=== PATIENT | female | born 2005 | race Caucasian/White ===

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

== ENCOUNTER 2024-09-25 13:23 | Emergency (ER) | payer BC, SELFPAY ==
[2024-09-25 13:35] VITALS: BP 141/98; PULSE 88; RESP 18; TEMP 36.7; O2SAT 99; BMI 24.7
[2024-09-25 13:56] VITALS: BP 134/79; PULSE 97; RESP 16
--- NOTE | 2024-09-25 14:16 | W.ED.HEATRA ---
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 Did not lose consciousness and has not had any seizure-like activity, vomiting, or other focal neurological deficits. Bleeding controlled with direct pressure. Tetanus not up-to-date. Vital stable at this time. Not on blood thinners and no pertinent past medical history to report. She is noting a minor headache. MD Complaint: head injury (Scalp laceration) Onset (ago): minute(s) Place: home Loss of Consciousness: no Location of injury: parietal Other Injuries: none Associated symptoms: Deny nausea or vomiting Related Data Previous Rx's Medication Instructions Recorded cetirizine 10 mg tablet 10 mg PO DAILY 30 days #30 tabs 06/22/22 fluticasone propionate 50 1 spray intranasal BID 7 days 06/22/22 mcg/actuation nasal #15.8 mL spray,suspension norethindrone acetate 1.5 1 tab PO DAILY 21 days #21 tabs 09/15/22 mg-ethinyl estradiol 30 mcg tablet (Junel) Allergies Allergy/AdvReac Type Severity Reaction Status Date / Time No Known Allergies Allergy Verified 09/25/24 13:38 Review of Systems General: Reports: 10 or more systems reviewed and unremarkable except in HPI and below Const: Denies: fever(s) or chills Card: Denies: chest pain Resp: Denies: dyspnea GI: Denies: abdominal pain, nausea, vomiting or diarrhea Musc: Denies: extremity pain or joint pain Skin/Breast: Reports: skin tenderness and new lesions (Scalp laceration); Denies: rash Neuro: Reports: headache(s); Denies: numbness in extremities, weakness in extremities, sensory changes, behavioral changes, Slurred speech present or seizure-like activity PFS ED PFSH: Family History Grandmother Cancer, Onset Age: 25 maternal grandmother dx with ovarian cancer at 25 Family/Other Cancer, Onset Age: 42 Maternal aunt dx with breast cancer at age 42 Other Asthma Social History Smoking and tobacco/nicotine status: never used tobacco/nicotine Second hand smoke exposure: Yes Alcohol intake: never Substance/Drug Use: never Adopted: No Female Reproductive History: Spontaneous abortions: No Physical Exam Const: COMMON NORMALS: no acute distress, patient oriented x3 and no limitations GENERAL APPEARANCE: cooperative, comfortable and well developed ORIENTATION/CONSCIOUSNESS: Yes awake, Yes oriented to person, Yes oriented to place and Yes oriented to time HENMT: OTHER: Scalp laceration to parietal region, measuring approximately 2 cm with no active bleeding. No Schaffer sign or raccoon eyes. No palpable skull fracture. No signs of neck trauma. Eye: COMMON NORMALS: Equal, round and reactive pupils present, EOMs intact bilaterally and conjunctivae normal CONJUNCTIVA: Yes conjunctivae normal PUPIL: Yes Equal, round and reactive pupils present Neck/C-Spine: COMMON NORMALS: full ROM, supple and no JVD Resp: COMMON NORMALS: normal respiratory effort, No retractions, No use of accessory muscles and clear to auscultation bilaterally AUSCULTATION: clear to auscultation bilaterally Cardio: COMMON NORMALS: no JVD, regular rate, regular rhythm, No clicks present (Cardio), No murmurs present (Cardio) and No rub (Cardio) RATE: regular rate RHYTHM: regular rhythm Extremity: COMMON NORMALS: normal to inspection, full ROM and capillary refill normal Neuro: COMMON NORMALS: patient oriented x3, CN's II-XII intact bilaterally, moves all extremities, no focal motor deficits and no sensory deficits noted SENSORIUM/ORIENTATION: Yes oriented to person, Yes oriented to place and Yes oriented to time COORDINATION/BALANCE: [id number] test normal and [id number] test normal MOTOR EXAM: 5/5 motor strength present throughout, Pronator motor function not present, no tremor noted, no asterixis and Motor fasciculations not present COORDINATION: [id number] test normal and [id number] test normal Psych: COMMON NORMALS: mental status grossly normal and Normal thought process present THOUGHT PROCESS: Normal thought process present Skin: COMMON NORMALS: no rashes or lesions noted GENERAL SKIN EXAM: no rashes or lesions noted Procedures Laceration Laceration 1: Site: scalp Size (cm): 2 Description: linear and clean Depth: simple, single layer Local Anesthetic: lidocaine 2% and with epi Amount of anesthesia used (mL): 2 Pre-repair: wound explored Skin layer closed with: other ([place]) Number of sutures: 2 Course Vital Signs: Vital signs: Vital Signs Temperature 98.1 F 09/25/24 13:35 Pulse Rate 97 09/25/24 13:56 Respiratory Rate 16 09/25/24 13:56 Blood Pressure 134/79 09/25/24 13:56 Pulse Oximetry 99 09/25/24 13:35 Oxygen Delivery Me thod Room Air 09/25/24 13:35 MDM - Head Injury Medcial Decision Making Patient hit her head with a [employer] flatbed truck driver. Tetanus was updated here. Neurologically she was completely intact, had no concerning signs or symptoms and head imaging at this time not warranted. Scalp laceration was repaired with brett and proper wound care and reasons to return were discussed. She will have these on 5 days at either here or urgent care. All other questions and concerns addressed. No radiology studies performed this visit Discharge Plan Discharge Patient Disposition: Home Clinical Impression: Laceration of scalp Condition: Stable Prescriptions: No Action fluticasone propionate 50 mcg/actuation spray,suspension 1 spray intranasal BID 7 Days Qty: 15.8 0RF Rx Instructions: administer into each nostril; use sterile nasal saline first cetirizine 10 mg tablet 10 mg PO DAILY 30 Days Qty: 30 0RF Rx Instructions: 1 tab by mouth daily norethindrone ac-eth estradiol [ ()] 1.5-30 mg-mcg tablet 1 tab PO DAILY 21 Days Qty: 21 2RF Rx Instructions: Take one tablet every day at the same time. Start new pack on day 28. Discharge Orders: Discharge ED (Routine); Ordered 09/25/24 Ordered By: Magdaleno Maldonado Referrals: Soila Jameson MD [Primary Care Provider] - Patient Instructions: Scalp Laceration Activity Restrictions/Additional Instructions: Please have your brett out in 5 days. Do not shower for 24 hours. Make sure it is dry at all times, monitor for any worsening of pain or bleeding. You may wrap ice in a washcloth and place for any soreness. Take ibuprofen or Tylenol for pain. Your tetanus was updated today 09/25/2024. Coding Level of Care Code ED Junior Sales Assistant for Pete Huerta
[2024-09-25] MEDS: tetanus-dipt-pertussis 0.5 mL SDV IM (14:49)
[2024-09-25 15:13] VITALS: BP 113/72; PULSE 58; RESP 16; O2SAT 98
[2024-09-25] MEDS: lidocaine 2% INJ 20 mL 10 ML INJECTION (15:13)
== END 2024-09-25 15:15 | disposition home or self-care (01) ==
PROVIDERS: Emergency Provider Physician Assistant; PCP Pediatrics Adolescent Medicine
DX: S01.01XA Laceration without foreign body of scalp, initial encounter (principal); X58.XXXA Exposure to other specified factors, initial encounter
CPT/HCPCS: 12001; 90471; 90715; 99283